=== PATIENT | male | born 1955 | race Caucasian/White ===

== ENCOUNTER 2016-05-04 11:22 | Emergency (ER) | payer BC ==
[~2016-05-04] VITALS: Ht 175.3 cm; Wt 78.4 kg
[~2016-05-04 11:22] MED LIST: CIPR-255 PO; CPR/500 PO
[2016-05-04 11:24] VITALS: TEMP 36.7; Ht 175.3 cm; Wt 78.4 kg
[2016-05-04 11:51] VITALS: O2SAT 98
[2016-05-04 12:01] LABS: BASO % 0.8 %; BASO ABS # 0.05 K/uL (0-0.2); COMPLETE YES; EOS % 1.5 %; HEMATOCRIT 41.9 % (42-52); LYMPH % 28.5 %; LYMPH ABS # 1.77 K/uL (1.2-3.4); MEAN CELL VOLUME 93.3 fL (80-100); MEAN CORPUSCULAR HGB CONC 35.3 g/dl (32-36); MEAN PLATELET VOLUME 9.8 fL (7.4-10.4); MONO % 5.8 %; NEUT % 63.4 %; PLATELET COUNT 238 K/uL (130-400); RED BLOOD COUNT 4.49 M/uL (4.7-6.1)
[2016-05-04] MEDS ORDERED: TAMS0.4C38 PO (12:02)
--- NOTE | 2016-05-04 12:19 | DIAGNOSTIC IMAGING REPORT ---
CHEST ONE VIEW PORTABLE CLINICAL HISTORY: Atypical chest pain COMPARISON STUDY: No previous studies for comparison. FINDINGS: The cardiac and mediastinal contours are normal. There is no evidence of focal pulmonary consolidation. There is no evidence of failure. No pleural effusions are visualized.[ There is a 1 cm right apical opacity, possibly representing a summation. IMPRESSION: AP portable study. No evidence of failure. No evidence of focal pulmonary consolidation. 1 cm right apical opacity, possibly representing a summation Electronically signed by: Darryl Malave M.D. 05/04/2016 12:17 PM
[2016-05-04 12:22] LABS: BUN/CREATININE RATIO 13.2 (10-20); CALCIUM 8.7 mg/dl (8.5-10.1); CREATININE 0.91 mg/dl (0.60-1.40); POTASSIUM 3.8 mmol/L (3.5-5.1)
[2016-05-04 12:27] LABS: ALB/GLOB RATIO 1.4 (0.9-2)
[2016-05-04] MEDS ORDERED: OMEP40CA PO (15:42)
--- NOTE | 2016-05-04 15:42 | EMERGENCY ROOM VISIT NOTE ---
History First contact with patient: 11:30 Chief Complaint: CHEST PAIN Stated Complaint: CHEST PAIN Nursing Triage Summary: pt has left sided chest pain intermittent for 2 weeks pt pain in now constant interfering with sleep no cardiac hx pain constant since 1800 History of Present Illness The patient is a 60 year old male who presents to the Emergency Room with complaints of left-sided chest pain which has been present for "as long as he can remember." The patient reports that he has always had twinges of pain in his left chest. He states the pains only lasted for a few seconds and he was never concerned about them. He does report that over the past 2 weeks, he has been having worsening pain in the chest which lasts longer than a few minutes. The pain does seem to be worse at night. The pain kept him up at night for the past 2 days. The patient does have a family history of cardiac disease in his father, who had his first heart attack at age 69. The patient denies any personal cardiac history. He has had some cardiac workup from his primary care provider secondary to his family history, which was negative. The patient does have a history of hypercholesterolemia and states this is well controlled with niacin. The patient is not a smoker. He does take aspirin daily. He denies any history of hypertension or diabetes. The chest pain is not associated with any shortness of breath. There is no radiation into the jaw, neck or arm. He rates his overall discomfort a 3/10 and has not been taking any medications for the pain. Review of Systems A complete 10-point Review of Systems was discussed with the patient, with pertinent positives and negatives listed in the History of Present Illness. All remaining Review of Systems questions can be considered negative unless otherwise specified. Family History FH: gallbladder disease FH: heart disease FHx: cancer Kidney stone Social History Smoking Status: Never Smoker Alcohol Use: none Housing Status: lives with significant other Occupation Status: employed Current/Historical Medications Scheduled Omeprazole (Prilosec), 40 MG PO DAILY Tamsulosin Hcl (Flomax), 0.4 MG PO DAILY@1200 Allergies Coded Allergies: Penicillins (Verified Allergy, Severe, ANAPHYLAXIS, 05/04/16) Sulfa Antibiotics (Unverified Allergy, Unknown, RED SKIN, 05/04/16) Physical Exam Vital Signs Date Time Temp Pulse Resp B/P Pulse Ox O2 Delivery O2 Flow Rate FiO2 05/04/16 15:59 74 18 122/69 96 Room Air 1/3/17 13:48 57 18 116/77 97 Room Air 05/04/16 12:06 83 05/04/16 11:51 98 Room Air 05/04/16 11:51 72 20 113/72 97 Room Air 05/04/16 11:24 36.7 76 20 137/80 98 Room Air Pain Rating (0-10): 0 Physical Exam VITALS: Vitals are noted on the nurse's note and reviewed by myself. Vital signs stable. GENERAL: This is a 60-year-old male, in no acute distress, nondiaphoretic, well- developed well-nourished. SKIN: Capillary reflex less than 2 seconds. HEENT: Normocephalic. PERRLA. EOMI. Nares patent. Mucous membranes moist. Neck is supple without nuchal rigidity. HEART: Regular rate and rhythm without murmurs gallops or rubs. LUNGS: Clear to auscultation bilaterally without wheezes, rales or rhonchi. No retractions or accessory muscle use. ABDOMEN: Soft, nontender to palpation. MUSCULOSKELETAL: No gross musculoskeletal defects. No pedal edema. No calf tenderness. NEURO: Patient was alert and oriented to person place and time. Medical Decision & Procedures ER Provider Diagnostic Interpretation: CHEST ONE VIEW PORTABLE CLINICAL HISTORY: Atypical chest pain COMPARISON STUDY: No previous studies for comparison. FINDINGS: The cardiac and mediastinal contours are normal. There is no evidence of focal pulmonary consolidation. There is no evidence of failure. No pleural effusions are visualized.[ There is a 1 cm right apical opacity, possibly representing a summation. IMPRESSION: AP portable study. No evidence of failure. No evidence of focal pulmonary consolidation. 1 cm right apical opacity, possibly representing a summation Laboratory Results 05/04/16 11:30 Red Blood Count 4.49, Mean Corpuscular Volume 93.3, Mean Corpuscular Hemoglobin 33.0, Mean Corpuscular Hemoglobin Concent 35.3, Mean Platelet Volume 9.8, Neutrophils (%) (Auto) 63.4, Lymphocytes (%) (Auto) 28.5, Monocytes (%) (Auto) 5.8, Eosinophils (%) (Auto) 1.5, Basophils (%) (Auto) 0.8, Neutrophils # (Auto) 3.93, Lymphocytes # (Auto) 1.77, Monocytes # (Auto) 0.36, Eosinophils # (Auto) 0.09, Basophils # (Auto) 0.05 05/04/16 11:30 Test 05/04/16 11:30 05/04/16 11:46 White Blood Count 6.20 K/uL (4.8-10.8) Red Blood Count 4.49 M/uL (4.7-6.1) Hemoglobin 14.8 g/dL (14.0-18.0) Hematocrit 41.9 % (42-52) Mean Corpuscular Volume 93.3 fL (80-100) Mean Corpuscular Hemoglobin 33.0 pg (25-34) Mean Corpuscular Hemoglobin Concent 35.3 g/dl (32-36) Platelet Count 238 K/uL (130-400) Mean Platelet Volume 9.8 fL (7.4-10.4) Neutrophils (%) (Auto) 63.4 % Lymphocytes (%) (Auto) 28.5 % Monocytes (%) (Auto) 5.8 % Eosinophils (%) (Auto) 1.5 % Basophils (%) (Auto) 0.8 % Neutrophils # (Auto) 3.93 K/uL (1.4-6.5) Lymphocytes # (Auto) 1.77 K/uL (1.2-3.4) Monocytes # (Auto) 0.36 K/uL (0.11-0.59) Eosinophils # (Auto) 0.09 K/uL (0-0.5) Basophils # (Auto) 0.05 K/uL (0-0.2) RDW Standard Deviation 43.4 fL (36.4-46.3) RDW Coefficient of Variation 12.8 % (11.5-14.5) Immature Granulocyte % (Auto) 0.0 % Immature Granulocyte # (Auto) 0.00 K/uL (0.00-0.02) Anion Gap 10.0 mmol/L (3-11) Est Creatinine Clear Calc Drug Dose 88.5 ml/min Estimated GFR () 107.3 Estimated GFR (Non- 92.6 BUN/Creatinine Ratio 13.2 (10-20) Calcium Level 8.7 mg/dl (8.5-10.1) Total Bilirubin 0.6 mg/dl (0.2-1) Aspartate Amino Transf (AST/SGOT) 30 U/L (15-37) Alanine Aminotransferase (ALT/SGPT) 34 U/L (12-78) Alkaline Phosphatase 60 U/L (45-117) Total Creatine Kinase 233 U/L (39-308) Creatine Kinase MB 2.4 ng/ml (0.5-3.6) Creatine Kinase MB Ratio 1.0 (0-3.0) Total Protein 7.1 gm/dl (6.4-8.2) Albumin 4.2 gm/dl (3.4-5.0) Globulin 2.9 gm/dl (2.5-4.0) Albumin/Globulin Ratio 1.4 (0.9-2) Bedside Troponin I 0.000 ng/ml (0-0.045) ECG Indication: chest pain Rate (beats per minute): 83 Rhythm: normal sinus Findings: no acute ischemic change, no ectopy Comparison ECG Date: no prior available Medical Decision Differential diagnosis includes acute coronary syndrome, pulmonary embolism, pneumothorax, pericarditis, myocarditis, endocarditis, anxiety, musculoskeletal pain, GERD, costochondritis, among others. The patient was evaluated as above. Labs were drawn and IV access was obtained. The patient was placed on the surveillance system monitor. Imaging studies were performed and read by radiology as above. The patient was reassessed multiple times during their stay in the emergency department and remained in stable condition. The patient is a 60-year-old male who presents today complaining of left-sided chest pain. Labs revealed no leukocytosis, anemia or concerning electrolyte abnormalities. Troponin was not elevated. EKG showed a normal sinus rhythm. The patient's symptoms are suggestive of GERD and I do not feel that they are secondary to cardiac disease. I did have a discussion with the patient and his , who are very anxious about his symptoms. I contacted the roll up helper, who was able to perform a stress test prior to discharge. Please see his note. The patient passed the stress test with no chest pain or EKG changes. Did have a second discussion with the patient, who felt significantly less anxious after having a stress test performed. I did recommend that he begin Prilosec and follow-up with his primary care provider for possible GERD. He was agreeable to this treatment plan. Based on the patient's presentation, lab results, and imaging studies, I feel the patient is stable for outpatient treatment. The patient's case was reviewed with Dr. Encarnacion, ED attending physician, who agreed with my assessment and treatment plan. Discharge instructions were reviewed with the patient. The patient verbalized understanding of my assessment and treatment plan and was discharged home in good condition. Impression Primary Impression: Non-cardiac chest pain Departure Information Dispostion Home / Self-Care Condition GOOD Prescriptions Omeprazole (Prilosec) 40 Mg Capcr 40 MG PO DAILY for 14 Days, #14 CAP Prov: Bella Barbosa ., ELIZABETH 05/04/16 Referrals Leonides Gutierrez D.O.Int.Med. (PCP) Patient Instructions A Signature Page, My [facility] Additional Instructions You have been treated in the Emergency Department for your Non-Cardiac Chest Pain. Laboratory results and Imaging Studies have ruled out any cardiac or pulmonary cause of your chest pain. Prilosec as prescribed. For pain control, you can use the following [id number] medicines (if >12 yo): - Regular strength (325mg/tab) Tylenol (acetaminophen) 2 tabs every 4-6 hours as needed. Do not exceed 12 tablets in a 24 hour period. Avoid taking more than 4 grams (4000 mg) of Tylenol per day. This includes any other sources of acetaminophen you may take on a regular basis. - Regular strength (200 mg/tab) Advil (ibuprofen) 1-2 tabs every 4-6 hours as needed. Do not exceed a dose of 3200 mg per day. You should schedule a follow-up appointment with your Primary Care Provider in 2 -3 days for further evaluation from today's Emergency Department visit. Return to the Emergency Department if your current symptoms worsen despite treatment course outlined above, or if you develop any of the following symptoms : worsening chest pain, associated jaw/arm pain, nausea, dizziness, shortness of breath, bloody cough, or fainting.
[2016-05-04 15:59] VITALS: BP 122/69; PULSE 74; O2SAT 96
--- NOTE | 2016-05-04 16:06 | EXERCISE STRESS ECHO ---
*NOTICE TO RECEIVING LIBERTARIAN AGENCY This information is strictly Confidential and protected under [place] law. [place] law prohibits you from making any further disclosure of this information unless further disclosure is expressly permitted by the written consent of the person to whom it pertains or is authorized by law. A general authorization for the release of medical or other information is not sufficient for this purpose. Hospital accepts no responsibility if the information is made available to any other person, INCLUDING THE PATIENT. Interpretation Summary * Name: ERICK AVILA Study Date: 05/04/2016 01:54 PM BP: 133/77 mmHg * Patient Location: [facility] HR: 64 * : 1955 (M/d/yyyy) Gender: Male Height: 69 in * Age: 60 yrs Ethnicity: CA Weight: 172 lb * Ordering Physician: Matt Hawley * Referring Physician: SEBASTIÁN * Performed By: Noemi Gill RDCS * * Reason For Study: CHEST PAIN * BSA: 1.9 m2 * History: CHEST PAIN * This was a normal stress echocardiogram. * The stress echocardiogram is negative for inducible ischemia. * Exercise capacity is above average. * Baseline ECG was essentially normal. No symptoms were noted. * The stress ECG response was normal * Stress wall motion was normal. Procedure Details * ECHOEX, CPT #86602 Left Ventricle * The left ventricle is normal in size. * There is normal left ventricular wall thickness. * Ejection Fraction = 50-55%. * Resting wall motion: Normal. Stress wall motion: Appropriate increase in Left ventricular systolic function and decrease in cavity size. No stress induced segmental wall motion abnormalities. Right Ventricle * The right ventricle is normal in size and function. Atria * The left atrial size is normal. * Right atrial size is normal. * The interatrial septum is intact with no evidence for an atrial septal defect. Mitral Valve * The mitral valve is normal in structure and function. * There is mild mitral regurgitation. Tricuspid Valve * The tricuspid valve is normal in structure and function. * There is trace tricuspid regurgitation. * Right ventricular systolic pressure is normal. Aortic Valve * The aortic valve is normal in structure and function. * The aortic valve is trileaflet. * No aortic regurgitation is present. Pulmonic Valve * The pulmonic valve is normal in structure and function. Great Vessels * The aortic root is normal size. * Aortic arch of normal dimension. * No obvious dissection could be visualized. * The pulmonary artery is not well visualized, but is probably normal size. Pericardium * There is no pericardial effusion. Stress Parameters * Normal baseline electrocardiogram. * No arrhythmia were noted with stress. * The stress portion of this study was personally supervised by the undersigned interpreting physician. * Rest heart rate was '64' BPM. * Rest blood pressure was '133/77' * Maximum heart rate achieved was 155 bpm. * Maximum heart rate was 95 % of maximum age-predicted heart rate. * Maximum blood pressure was '171/77' * Total exercise time was '10:01' * Maximum exercise MET level achieved was '11.70' METS * Maximum treadmill speed was '4.20' miles per hour. * Maximum treadmill elevation was '95'% grade. * Exercise was terminated due to 'ACHIEVING TARGET HR' MMode 2D Measurements and Calculations IVSd 0.66 cm IVSs 1.3 cm LVIDd 5.7 cm LVIDs 4.1 cm LVPWd 0.71 cm LVPWs 1.6 cm IVS/LVPW 0.93 FS 28.3 % EDV(Teich) 160.2 ml ESV(Teich) 73.8 ml EF(Teich) 54.0 % EDV(cubed) 185.4 ml ESV(cubed) 68.4 ml EF(cubed) 63.1 % % IVS thick 89.4 % % LVPW thick 122.9 % LV mass(C)d 141.0 grams LV mass(C)dI 72.8 grams/m\S\2 LV mass(C)s 220.4 grams LV mass(C)sI 113.8 grams/m\S\2 SV(Teich) 86.4 ml SI(Teich) 44.6 ml/m\S\2 SV(cubed) 117.0 ml SI(cubed) 60.4 ml/m\S\2 Ao root diam 3.5 cm Ao root area 9.6 cm\S\2 LA dimension 3.2 cm LA/Ao 0.91 LVAd ap4 33.7 cm\S\2 LVLd ap4 8.5 cm EDV(MOD-sp4) 106.0 ml EDV(sp4-el) 113.1 ml LVAs ap4 19.3 cm\S\2 LVLs ap4 6.7 cm ESV(MOD-sp4) 47.7 ml ESV(sp4-el) 47.2 ml EF(MOD-sp4) 55.0 % EF(sp4-el) 58.3 % LVAd ap2 26.4 cm\S\2 LVLd ap2 7.9 cm EDV(MOD-sp2) 72.0 ml EDV(sp2-el) 75.1 ml LVAs ap2 15.7 cm\S\2 LVLs ap2 6.7 cm ESV(MOD-sp2) 32.6 ml ESV(sp2-el) 31.2 ml EF(MOD-sp2) 54.7 % EF(sp2-el) 58.5 % LVLd %diff -8.52 % EDV(MOD-bp) 91.0 ml LVLs %diff 0.26 % ESV(MOD-bp) 39.4 ml EF(MOD-bp) 56.7 % SV(MOD-sp4) 58.3 ml SI(MOD-sp4) 30.1 ml/m\S\2 SV(MOD-sp2) 39.4 ml SI(MOD-sp2) 20.3 ml/m\S\2 SV(MOD-bp) 51.6 ml SI(MOD-bp) 26.6 ml/m\S\2 SV(sp4-el) 65.9 ml SI(sp4-el) 34.0 ml/m\S\2 SV(sp2-el) 43.9 ml SI(sp2-el) 22.7 ml/m\S\2 Doppler Measurements and Calculations MV E max colten 61.1 cm/sec MV A max colten 60.6 cm/sec MV E/A 1.0 MV dec time 0.31 sec Ao V2 max 133.6 cm/sec Ao max PG 7.1 mmHg Ao max PG (full) 4.2 mmHg LV V1 max PG 3.0 mmHg LV V1 max 86.3 cm/sec TR max colten 240.0 cm/sec
== END 2016-05-04 16:00 | disposition home or self-care (01) ==
LOC: C.EDB 11:23 → C.EDA 16:00
DX: R07.9 Chest pain, unspecified (principal); E78.00 Pure hypercholesterolemia, unspecified; R05 Cough; R42 Dizziness and giddiness; R55 Syncope and collapse

== ENCOUNTER → 2016-05-21 | Outpatient (CLI) | payer BC ==
[~2016-05-21] MED LIST changes: -CIPR-255 PO; -CPR/500 PO; +TAMS0.4C38 PO
--- NOTE | 2016-05-21 12:07 | DIAGNOSTIC IMAGING REPORT ---
CHEST 2 VIEWS ROUTINE HISTORY: Atypical chest pain. COMPARISON: Chest 05/04/2016. FINDINGS: A faint 1 cm nodular density at the right lung apex persists. Otherwise, the lungs are clear. The heart is normal in size. No pleural effusions. No pneumothorax. IMPRESSION: Redemonstration of the 1 cm nodular density at the right lung apex. Recommend follow-up chest CT for further evaluation. Electronically signed by: Thomas Franco M.D. 05/21/2016 12:40 PM Dictated Date/Time: 05/21/2016 12:02 PM
== END | disposition home or self-care (01) ==
LOC: C.RADBC 11:52
PROVIDERS: ATTEND Family Medicine
DX: R07.9 Chest pain, unspecified (principal)

== ENCOUNTER → 2016-05-27 | Outpatient (CLI) | payer BC ==
[~2016-05-27] MED LIST changes: +OPTIRAY 320 IV PRN
--- NOTE | 2016-05-27 10:05 | DIAGNOSTIC IMAGING REPORT ---
CT SCAN OF THE CHEST WITH IV CONTRAST CLINICAL HISTORY: Abnormal chest x-ray. COMPARISON STUDY: Chest radiographs dated 05/21/2016. TECHNIQUE: Following the IV administration of 92 cc of Optiray 320, CT scan of the thorax was performed from the thoracic inlet to the upper abdomen. Images are reviewed in the axial, sagittal, and coronal planes. IV contrast was administered without complication. CT DOSE: 340.43 mGy.cm FINDINGS: Thyroid: Imaged portions of the thyroid gland are normal in size and attenuation. Thoracic aorta: The thoracic aorta is normal in caliber and demonstrates standard 3-vessel arch anatomy. No dissection is seen. Pulmonary vasculature: The pulmonary trunk is normal in caliber. There are no filling defects identified in the central pulmonary vessels to indicate pulmonary embolus. Note that this examination was not protocoled for evaluation of the pulmonary arteries. Heart: The heart is normal in size and configuration, and without pericardial effusion. Lungs and pleural spaces: There is mild apical scarring. The lungs and pleural spaces are otherwise clear. The trachea and central airways are patent. No concerning pulmonary lesion is seen. Mediastinum: There is no mediastinal lymphadenopathy. Nara: Clear. Axillae: There is no axillary lymphadenopathy. Upper abdomen: There is a nonobstructing left renal calculus. A 2.3 cm exophytic cyst arises from the upper pole the left kidney. Partially visualized upper abdominal viscera is otherwise within normal limits. Skeletal structures: No lytic or blastic bony lesions are seen. IMPRESSION: 1. No concerning pulmonary lesion is identified. Specifically, there is no right apical lesion as clinically queried. This finding questioned by x-ray may have been related to mild apical scarring or superimposition of shadows. 2. There is no airspace consolidation or pleural effusion. 3. There is no mediastinal or hilar adenopathy. 4. Nonobstructing left renal calculus. Electronically signed by: Gama Heath M.D. 05/27/2016 10:04 AM Dictated Date/Time: 05/27/2016 9:57 AM
== END | disposition home or self-care (01) ==
LOC: C.CTS 09:29
PROVIDERS: ATTEND Family Medicine
DX: R93.8 Abnormal findings on diagnostic imaging of other specified body structures (principal)

== ENCOUNTER → 2017-01-15 | Outpatient (CLI) | payer BC ==
[~2017-01-15] MED LIST changes: -OPTIRAY 320 IV PRN
[2017-01-15 11:10] LABS: BASO % 0.6 %; BASO ABS # 0.03 K/uL (0-0.2); COMPLETE YES; EOS % 2.5 %; HEMATOCRIT 43.6 % (42-52); LYMPH % 31.6 %; LYMPH ABS # 1.54 K/uL (1.2-3.4); MEAN CELL VOLUME 96.5 fL (80-100); MEAN CORPUSCULAR HEMOGLOBIN 34.3 pg (25-34); MEAN CORPUSCULAR HGB CONC 35.6 g/dl (32-36); MEAN PLATELET VOLUME 10.7 fL (7.4-10.4); MONO % 9.9 %; NEUT % 55.4 %; PLATELET COUNT 175 K/uL (130-400); RED BLOOD COUNT 4.52 M/uL (4.7-6.1); WHITE BLOOD COUNT 4.87 K/uL (4.8-10.8)
[2017-01-15 11:28] LABS: ALB/GLOB RATIO 1.4 (0.9-2); ALKALINE PHOSPHATASE 64 U/L (45-117); ALT/SGPT 24 U/L (12-78); AST/SGOT 24 U/L (15-37); BLOOD UREA NITROGEN 18 mg/dl (7-18); BUN/CREATININE RATIO 19.8 (10-20); CALCIUM 8.9 mg/dl (8.5-10.1); CARBON DIOXIDE 31 mmol/L (21-32); CHLORIDE 105 mmol/L (98-107); CHOLESTEROL 164 mg/dl (0-200); CREATININE 0.92 mg/dl (0.60-1.40); GLUCOSE 85 mg/dl (70-99); POTASSIUM 3.9 mmol/L (3.5-5.1); SODIUM 140 mmol/L (136-145); TRIGLYCERIDES 45 mg/dl (0-150); VERY LOW DENSITY LIPOPROT CALC 9 mg/dl
[2017-01-15 11:31] LABS: CHOLESTEROL/HDL RATIO 3.2; HDL CHOLESTEROL 52 mg/dl; LDL CHOLESTEROL CALCULATED 103 mg/dl
--- NOTE | 2017-01-31 12:03 | CODING QUERY MEDICAL NECESSITY ---
CQSUPPORTING DIAGNOSIS NEEDED A supporting diagnosis is required for the test/procedure performed on this patient in order for us to be reimbursed by the patient's insurance. Please provide a supporting diagnosis for the following test/procedure listed below next to the test name along with your signature. *If there is no additional diagnosis for this patient that would support the following test/procedure please document that below next to the test/procedure. Test(s)/Procedure(s) that require a supporting diagnosis: DOS 01/15/17 PROSTATE SPECIFIC TEST Provider Signature: Date: Thank you Katlyn Jaimes [facility] Information Management Once completed, please kindly fax back to [phone] For questions please call [phone]
== END | disposition home or self-care (01) ==
LOC: C.LABBC 07:31
PROVIDERS: ATTEND Internal Medicine
DX: Z00.00 Encounter for general adult medical examination without abnormal findings (principal); D69.6 Thrombocytopenia, unspecified

== ENCOUNTER → 2017-01-25 | Outpatient (CLI) | payer BC ==
--- NOTE | 2017-01-25 12:52 | DIAGNOSTIC IMAGING REPORT ---
KUB CLINICAL HISTORY: N20.0 [id number] COMPARISON STUDY: Outside 611 KUB dated 11/16/2013 FINDINGS: The renal shadows are partially obscured by overlying bowel gas and fecal material. No definite renal calculi are visualized. There is no pathologic bowel dilatation. There are 2 left pelvic basin calcifications which remain stable and therefore likely represent phleboliths. There is a right hip arthroplasty. IMPRESSION: No urinary tract calculi are visualized on conventional radiographic imaging. It should be noted that the renal shadows are largely obscured by overlying bowel gas and fecal material. Electronically signed by: Darryl Malave M.D. 01/25/2017 12:51 PM Dictated Date/Time: 01/25/2017 12:50 PM
== END | disposition home or self-care (01) ==
LOC: C.RAD1850 12:23
PROVIDERS: ATTEND Nurse Practitioner Family
DX: N20.0 Calculus of kidney (principal)